=== PATIENT | male | born 1980 | race Caucasian/White ===

== ENCOUNTER 2018-01-13 20:24 | Emergency (ER) | payer BC ==
[2018-01-13] MEDS ORDERED: IBUPROFEN 400 MG TAB ONE (22:03)
[2018-01-13] MEDS ORDERED: IBUPROFEN 200 MG TAB PO ONE (22:03)
[2018-01-13] MEDS ORDERED: AMOX/K CLAV 875 MG TAB ONE (22:03)
--- NOTE | 2018-01-13 22:04 | ER ---
Nurse's Notes [facility] Name: Wilmar Norman Age: 37 yrs Sex: Male : 1980 Arrival Date: 01/13/2018 Time: 20:31 Bed 23 Private MD: Diagnosis: Bitten by dog;Puncture wound without foreign body of left hand Presentation: 01/13 20:31 Presenting complaint: Patient states: My dog bit me about 30 minutes ago. Dog is tl2 vaccinated. Accidental bite. small puncture wound noted to left thumb area. Transition of care: patient was not received from another setting of care. Onset of symptoms was January 13, 2018 at 20:00. Risk Assessment: Do you want to hurt yourself or someone else? Patient reports no desire to harm self or others. Initial Sepsis Screen: Does the patient meet any 2 criteria? No. Patient's initial sepsis screen is negative. Does the patient have a suspected source of infection? No. Patient's initial sepsis screen is negative. Care prior to arrival: None. 20:31 Method Of Arrival: Ambulatory tl2 20:31 Acuity: J LUIS 4 tl2 Triage Assessment: 20:34 Bite description: bite sustained to dorsal aspect of proximal phalanx of left thumb is tl2 from animal, was sustained 30-60 minutes ago. by a dog, animal information: Appearance: appeared well, is from animal, vaccination(s) is current, was sustained 30-60 minutes ago. Animal status: known and can be quarantined. General: Appears in no apparent distress. comfortable, Behavior is calm, cooperative, appropriate for age. Pain: Complains of pain in dorsal aspect of proximal phalanx of left thumb. Injury Description: Puncture sustained to dorsal aspect of proximal phalanx of left thumb is superficial, was sustained 30-60 minutes ago. Historical: - Allergies: 20:34 No Known Allergies; tl2 - Home Meds: 20:34 guafenesin [Active]; tl2 - PMHx: 20:34 ADD/ADHD; tl2 - Immunization history:: Last tetanus immunization: < 5 years ago. - Social history:: Smoking status: Patient/guardian denies using tobacco. - Ebola Screening: : No symptoms or risks identified at this time. - Family history:: not pertinent. Screenin:01 Abuse screen: Denies threats or abuse. Denies injuries from another. Nutritional mg2 screening: No deficits noted. Tuberculosis screening: No symptoms or risk factors identified. Fall Risk None identified. Assessment: 20:42 Reassessment: Spoke with Jose OLIVARES to report dog bite. tl2 21:02 General: Appears in no apparent distress. comfortable, Behavior is calm, cooperative. mg2 Pain: Complains of pain in left hand and dorsal aspect of proximal phalanx of left thumb Pain does not radiate. Pain currently is 5 out of 10 on a pain scale. Quality of pain is described as aching, Pain began gradually, Is intermittent, Alleviated by rest, repositioning. Neuro: Level of Consciousness is awake, alert, obeys commands, Oriented to person, place, time, situation. Cardiovascular: Capillary refill < 3 seconds Patient's skin is warm and dry. Respiratory: Airway is patent Respiratory effort is even, unlabored, Respiratory pattern is regular, symmetrical. GI: No deficits noted. No signs and/or symptoms were reported involving the gastrointestinal system. : No signs and/or symptoms were reported regarding the genitourinary system. EENT: No signs and/or symptoms were reported regarding the EENT system. Derm: Skin punctured wound Skin is pink, warm \T\ dry. normal. Musculoskeletal: Circulation, motion, and sensation intact. 22:51 Reassessment: Patient appears in no apparent distress at this time. Patient and/or mg2 family updated on plan of care and expected duration. Pain level reassessed. Patient is alert, oriented x 3, equal unlabored respirations, skin warm/dry/pink. Vital Signs: 20:34 BP 127 / 77; Pulse 72; Resp 18; Temp 98.4; Pulse Ox 98% on R/A; Weight 99.79 kg; Height tl2 5 ft. 10 in. (177.80 cm); Pain 3/10; 22:00 BP 103 / 66 LA Supine (auto/reg); Pulse 64 MON; Resp 19 S; Pulse Ox 99% on R/A; jp3 22:50 BP 123 / 78; Pulse 85; Resp 18; Pulse Ox 100% ; Pain 2/10; mg2 20:34 Body Mass Index 31.57 (99.79 kg, 177.80 cm) tl2 ED Course: 20:31 Patient arrived in ED. tl2 20:34 Triage completed. tl2 20:34 Arm band placed on right wrist. tl2 20:47 Derek Prieto, RN is Primary Nurse. mg2 21:02 No provider procedures requiring assistance completed. mg2 21:04 Patient has correct armband on for positive identification. mg2 21:18 Timothy Zamorano MD is Attending Physician. [facility] 21:54 Hand Left 3 View XRAY In Process Unspecified. EDMS 22:50 Patient did not have IV access during this emergency room visit. Dressings: mg2 non-adherent dressing x 1 lateral aspect of left hand and dorsal aspect of proximal phalanx of left thumb neosporin applied. Administered Medications: 22:13 Drug: Augmentin 875 mg Route: PO; mg2 22:40 Follow up: Response: No adverse reaction; Medication administered at discharge. mg2 22:13 Drug: Motrin 600 mg Route: PO; mg2 22:40 Follow up: Response: No adverse reaction; Medication administered at discharge. mg2 22:40 Drug: Ancef 1 grams Route: IM; Site: left gluteus; mg2 22:40 Follow up: Response: No adverse reaction; Medication administered at discharge. mg2 Outcome: 22:03 Discharge ordered by . [facility] 22:51 Discharged to home ambulatory, with family. mg2 22:51 Condition: good 22:51 Discharge instructions given to patient, family, Instructed on discharge instructions, follow up and referral plans. medication usage, Demonstrated understanding of instructions, follow-up care, medications, Prescriptions given X 3. 22:51 Patient left the ED. mg2 Signatures: Dispatcher [employer] [facility] Timothy Zamorano MD MD cha Knox, Taylor, RN RN tl2 Derek Prieto RN RN [facility] Kurt Beck jp3
--- NOTE | 2018-01-13 22:04 | EDPHYS ---
Physician Documentation [facility] Name: Wilmar Norman Age: 37 yrs Sex: Male : 1980 Arrival Date: 01/13/2018 Time: 20:31 Bed 23 Private MD: ED Physician Timothy Zamorano HPI: 01/13 21:23 This 37 yrs old Male presents to ER via Ambulatory with complaints of Dog jamarcus Bite. 21:23 by a dog, as a result of teasing the animal. Onset: The symptoms/episode began/occurred jamarcus just prior to arrival. Animal information: The animal was reported to appear healthy. Animal's vaccinations are up to date. The animal is known and can be quarantined, Animal control has been notified. Secondary to the bite the patient reports pain, multiple puncture wounds. Associated signs and symptoms: Pertinent positives: tenderness. Severity of symptoms: At their worst the symptoms were mild, moderate, in the emergency department the symptoms have improved, mildly. The patient has not experienced similar symptoms in the past. Historical: - Allergies: 20:34 No Known Allergies; tl2 - Home Meds: 20:34 guafenesin [Active]; tl2 - PMHx: 20:34 ADD/ADHD; tl2 - Immunization history:: Last tetanus immunization: < 5 years ago. - Social history:: Smoking status: Patient/guardian denies using tobacco. - Ebola Screening: : No symptoms or risks identified at this time. - Family history:: not pertinent. ROS: 21:23 Constitutional: Negative for fever, chills, and weight loss, Eyes: Negative for injury, jamarcus pain, redness, and discharge, ENT: Negative for injury, pain, and discharge, Neck: Negative for injury, pain, and swelling, Cardiovascular: Negative for chest pain, palpitations, and edema, Respiratory: Negative for shortness of breath, cough, wheezing, and pleuritic chest pain, Abdomen/GI: Negative for abdominal pain, nausea, vomiting, diarrhea, and constipation, Back: Negative for injury and pain, : Negative for injury, bleeding, discharge, and swelling, Skin: Negative for injury, rash, and discoloration, Neuro: Negative for headache, weakness, numbness, tingling, and seizure, Psych: Negative for depression, anxiety, suicide ideation, homicidal ideation, and hallucinations, Allergy/Immunology: Negative for hives, rash, and allergies, Endocrine: Negative for neck swelling, polydipsia, polyuria, polyphagia, and marked weight changes, Hematologic/Lymphatic: Negative for swollen nodes, abnormal bleeding, and unusual bruising. 21:23 MS/extremity: Positive for decreased range of motion, pain, puncture, tenderness, of the lateral aspect of left hand. Exam: 21:23 Constitutional: This is a well developed, well nourished patient who is awake, alert, jamarcus and in no acute distress. Head/Face: Normocephalic, atraumatic. Eyes: Pupils equal round and reactive to light, extra-ocular motions intact. Lids and lashes normal. Conjunctiva and sclera are non-icteric and not injected. Cornea within normal limits. Periorbital areas with no swelling, redness, or edema. ENT: Nares patent. No nasal discharge, no septal abnormalities noted. Tympanic membranes are normal and external auditory canals are clear. Oropharynx with no redness, swelling, or masses, exudates, or evidence of obstruction, uvula midline. Mucous membranes moist. Neck: Trachea midline, no thyromegaly or masses palpated, and no cervical lymphadenopathy. Supple, full range of motion without nuchal rigidity, or vertebral point tenderness. No Meningismus. Chest/axilla: Normal chest wall appearance and motion. Nontender with no deformity. No lesions are appreciated. Cardiovascular: Regular rate and rhythm with a normal S1 and S2. No gallops, murmurs, or rubs. Normal PMI, no JVD. No pulse deficits. Respiratory: Lungs have equal breath sounds bilaterally, clear to auscultation and percussion. No rales, rhonchi or wheezes noted. No increased work of breathing, no retractions or nasal flaring. Abdomen/GI: Soft, non-tender, with normal bowel sounds. No distension or tympany. No guarding or rebound. No evidence of tenderness throughout. Back: No spinal tenderness. No costovertebral tenderness. Full range of motion. Male : Normal genitalia with no discharge or lesions. MS/ Extremity: Pulses equal, no cyanosis. Neurovascular intact. Full, normal range of motion. Neuro: Awake and alert, GCS 15, oriented to person, place, time, and situation. Cranial nerves II-XII grossly intact. Motor strength 5/5 in all extremities. Sensory grossly intact. Cerebellar exam normal. Normal gait. Psych: Awake, alert, with orientation to person, place and time. Behavior, mood, and affect are within normal limits. 21:23 Skin: injury, puncture(s), that are deep, of the lateral aspect of left hand. Vital Signs: 20:34 BP 127 / 77; Pulse 72; Resp 18; Temp 98.4; Pulse Ox 98% on R/A; Weight 99.79 kg; Height tl2 5 ft. 10 in. (177.80 cm); Pain 3/10; 22:00 BP 103 / 66 LA Supine (auto/reg); Pulse 64 MON; Resp 19 S; Pulse Ox 99% on R/A; jp3 22:50 BP 123 / 78; Pulse 85; Resp 18; Pulse Ox 100% ; Pain 2/10; mg2 20:34 Body Mass Index 31.57 (99.79 kg, 177.80 cm) tl2 MDM: 21:18 Patient medically screened. [facility] 21:25 Data reviewed: vital signs, nurses notes, radiologic studies, plain films. [facility] 01/13 21:23 Order name: Hand Left 3 View XRAY [facility] 01/13 21:23 Order name: Wound Care: neosporin; Complete Time: 22:13 [facility] Administered Medications: 22:13 Drug: Augmentin 875 mg Route: PO; mg2 22:40 Follow up: Response: No adverse reaction; Medication administered at discharge. mg2 22:13 Drug: Motrin 600 mg Route: PO; mg2 22:40 Follow up: Response: No adverse reaction; Medication administered at discharge. mg2 22:40 Drug: Ancef 1 grams Route: IM; Site: left gluteus; mg2 22:40 Follow up: Response: No adverse reaction; Medication administered at discharge. mg2 Disposition: 01/13/18 22:03 Discharged to Home. Impression: Bitten by dog, Puncture wound without foreign body of left hand. - Condition is Stable. - Discharge Instructions: Animal Bite, [id number], Puncture Wound, Puncture Wound, [id number], Animal Bite. - Prescriptions for Augmentin 875- 125 mg Oral Tablet - take 1 tablet by ORAL route every 12 hours for 10 days; 20 tablet. Bactroban 2 % Topical Ointment - Apply to affected area 1 application by TOPICAL route every 12 hours; 30 gram. Tylenol- Codeine #3 300-30 mg Oral Tablet - take 2 tablet by ORAL route every 6 hours As needed; 30 tablet. - Medication Reconciliation Form, Thank You Letter, Antibiotic Education, Prescription Opioid Use, Work release form form. - Follow up: Private Physician; When: 2 - 3 days; Reason: Recheck today's complaints, Continuance of care, Re-evaluation by your physician. - Problem is new. - Symptoms have improved. Signatures: Dispatcher [employer] [facility]NM Timothy Zamorano MD MD cha Knox, Taylor, RN RN tl2 Derek Prieto, RN RN mg2 Corrections: (The following items were deleted from the chart) 22:51 22:03 01/13/2018 22:03 Discharged to Home. Impression: Bitten by dog; Puncture wound mg2 without foreign body of left hand. Condition is Stable. Discharge Instructions: Animal Bite, [id number], Animal Bite, Puncture Wound, Puncture Wound, [id number]. Prescriptions for Augmentin 875-125 mg Oral Tablet - take 1 tablet by ORAL route every 12 hours for 10 days; 20 tablet, Bactroban 2 % Topical Ointment - Apply to affected area 1 application by TOPICAL route every 12 hours; 30 gram, Tylenol-Codeine #3 300-30 mg Oral Tablet - take 2 tablet by ORAL route every 6 hours As needed; 30 tablet. and Forms are Medication Reconciliation Form, Thank You Letter, Antibiotic Education, Prescription Opioid Use. Follow up: Private Physician; When: 2 - 3 days; Reason: Recheck today's complaints, Continuance of care, Re-evaluation by your physician. Problem is new. Symptoms have improved. jamarcus
[2018-01-13] MEDS ORDERED: CEFAZOLIN SODIUM 1 GM/VIAL ONE (22:33)
[2018-01-13] MEDS ORDERED: WATER FOR INJ,STERILE 10 ML ONE (22:36)
--- NOTE | 2018-01-14 09:03 | RAD REPORT ---
EXAM DESCRIPTION: RAD -Hand Left 3 View - 01/13/2018 9:58 pm CLINICAL HISTORY: Left hand pain status post injury FINDINGS: No fracture or dislocation is seen. Air is present within the soft tissues of the first proximal phalanx secondary to a dog bite
== END 2018-01-13 22:51 | disposition home or self-care (01) ==
LOC: ER 20:24
DX: S61.032A Puncture wound without foreign body of left thumb without damage to nail, initial encounter (principal); W54.0XXA Bitten by dog, initial encounter; Y93.K9 Activity, other involving animal care; Y92.009 Unspecified place in unspecified non-institutional (private) residence as the place of occurrence of the external cause
CPT/HCPCS: 96372; 99283; J0690

== ENCOUNTER 2018-05-11 17:08 | Observation (INO) | payer BC ==
[2018-05-11 18:11] LABS: Absolute Lymphocytes (CBC) 1.4 K/uL (0.7-4.9); Absolute Monocytes 0.8 K/uL (0.1-1.3); Absolute Neutrophil 1.9 K/uL (1.8-8.0); Basophils % 0.4 % (0-1.3); Eosinophils % 1.5 % (0-4.4); Hematocrit 41.2 % (39.6-49.0); Lymphocytes % 34.1 % (15.3-44.8); Monocytes % 18.5 % (3.3-12.3); RBC Red Blood Cell Count 4.86 M/uL (4.33-5.43)
[2018-05-11 18:12] LABS: Protime INR 1.04
--- NOTE | 2018-05-11 18:16 | RAD REPORT ---
EXAM DESCRIPTION: Missy Single View05/11/2018 6:09 pm CLINICAL HISTORY: Chest pain COMPARISON: 2010 FINDINGS: The lungs appear clear of acute infiltrate. The heart is normal size IMPRESSION: No acute abnormalities displayed
[2018-05-11 18:30] LABS: ALT/SGPT 29 U/L (12-78); AST/SGOT 21 U/L (15-37); Alkaline Phosphatase 68 U/L (45-117); BUN Blood Urea Nitrogen 18 mg/dL (7-18); Bicarbonate 26 mmol/L (21-32); Bilirubin Direct < 0.1 mg/dL (0-0.2); Bilirubin Total 0.4 mg/dL (0.2-1.0); Glucose Level 73 mg/dL (74-106); Magnesium 2.1 mg/dL (1.8-2.4); NT PRO-BNP 10 pg/mL (<125); Potassium 3.5 mmol/L (3.5-5.1); Protein, Total 7.7 g/dL (6.4-8.2); Sodium Level 138 mmol/L (136-145); Troponin (Emerg Dept Use Only) < 0.02 ng/mL (0.0-0.045)
--- NOTE | 2018-05-11 19:48 | ER ---
Nurse's Notes [facility] Name: Wilmar Norman Age: 38 yrs Sex: Male : 1980 Arrival Date: 05/11/2018 Time: 17:17 Bed 13 Private MD: Diagnosis: Chest pain, unspecified Presentation: 05/11 17:10 Presenting complaint: EMS states: Pt 38 yr. old, A \T\ O x 4, c/o of chest pain that hb radiated to the left arm. At the pt. employer BP 150/100, P 88, 98% RA. Co-worker administered Aspirin 325 mg x 1 before EMS arrived. Pt. has NKA. Transition of care: patient was not received from another setting of care. Onset of symptoms was May 11, 2018 at 16:55. Risk Assessment: Do you want to hurt yourself or someone else? Patient reports no desire to harm self or others. Initial Sepsis Screen: Does the patient meet any 2 criteria? No. Patient's initial sepsis screen is negative. Does the patient have a suspected source of infection? No. Patient's initial sepsis screen is negative. Care prior to arrival: Medication(s) given: ASA, 325 mg, x 1. 17:10 Method Of Arrival: EMS: [facility] hb 17:10 Acuity: J LUIS 3 hb Historical: - Allergies: 17:10 No Known Allergies; hb - Home Meds: 17:10 guafenesin 1 mg nightly [Active]; Naproxen Oral [Active]; hb - PMHx: 17:10 ADD/ADHD; hb - PSHx: 17:10 Hernia repair; Tonsillectomy; Adenoids; hb - Immunization history:: Flu vaccine is up to date. - Social history:: Smoking status: Patient/guardian denies using tobacco. - Ebola Screening: : Patient negative for fever greater than or equal to 101.5 degrees Fahrenheit, and additional compatible Ebola Virus Disease symptoms. Screenin:10 Abuse screen: Denies threats or abuse. Nutritional screening: No deficits noted. rb1 Tuberculosis screening: No symptoms or risk factors identified. Fall Risk None identified. Assessment: 17:10 General: Appears in no apparent distress. comfortable, Behavior is calm, cooperative, rb1 Denies fever. Pain: Denies pain. Pain radiates to left arm Pt. denies pain now, but when it occurred on the job site, it was 10/10 and radiated down his left arm. C/o left arm tingling. Pain began 30 min ago. Neuro: Level of Consciousness is awake, alert, obeys commands, Oriented to person, place, time, situation, Reports tingling down left arm. Cardiovascular: Capillary refill < 3 seconds is brisk in bilateral fingers Rhythm is regular. Respiratory: Airway is patent Respiratory effort is even, unlabored, Respiratory pattern is regular, symmetrical. GI: No signs and/or symptoms were reported involving the gastrointestinal system. : No signs and/or symptoms were reported regarding the genitourinary system. Derm: Skin is pink, warm \T\ dry. 18:10 Reassessment: Patient appears in no apparent distress at this time. No changes from rb1 previously documented assessment. Friend at bedside. 19:00 General: Appears in no apparent distress. comfortable, Behavior is calm, cooperative. jb4 Pain: Denies pain. Neuro: Level of Consciousness is awake, alert, obeys commands, Oriented to person, place, time, situation. Cardiovascular: Patient's skin is warm and dry. Rhythm is sinus rhythm. Respiratory: Airway is patent Respiratory effort is even, unlabored, Respiratory pattern is regular, symmetrical. 19:00 Reassessment: Patient and/or family updated on plan of care and expected duration. Pain jb4 level reassessed. 20:00 Reassessment: Patient appears in no apparent distress at this time. No changes from jb4 previously documented assessment. Patient and/or family updated on plan of care and expected duration. Pain level reassessed. Patient is alert, oriented x 3, equal unlabored respirations, skin warm/dry/pink. Cardiovascular: Patient's skin is warm and dry. Rhythm is sinus rhythm. Respiratory: Airway is patent Respiratory effort is even, unlabored, Respiratory pattern is regular, symmetrical. 21:45 Reassessment: Patient appears in no apparent distress at this time. No changes from jb4 previously documented assessment. Patient and/or family updated on plan of care and expected duration. Pain level reassessed. Patient is alert, oriented x 3, equal unlabored respirations, skin warm/dry/pink. Pt has family at the bedside. Cardiovascular: Patient's skin is warm and dry. Rhythm is sinus rhythm. Respiratory: Airway is patent Respiratory effort is even, unlabored, Respiratory pattern is regular, symmetrical. 22:31 Reassessment: Patient appears in no apparent distress at this time. No changes from jb4 previously documented assessment. Patient and/or family updated on plan of care and expected duration. Pain level reassessed. Patient is alert, oriented x 3, equal unlabored respirations, skin warm/dry/pink. 23:15 Reassessment: Patient appears in no apparent distress at this time. No changes from jb4 previously documented assessment. Patient and/or family updated on plan of care and expected duration. Pain level reassessed. Patient is alert, oriented x 3, equal unlabored respirations, skin warm/dry/pink. Vital Signs: 17:10 BP 112 / 79; Pulse 77; Resp 18; Temp 97.9(O); Pulse Ox 100% on R/A; Weight 113.4 kg hb (R); Height 5 ft. 10 in. (177.80 cm) (R); Pain 0/10; 18:00 BP 111 / 85; Pulse 77; Resp 12; Pulse Ox 100% on R/A; Pain 0/10; rb1 19:00 BP 113 / 79; Pulse 82; Resp 16; Pulse Ox 100% on R/A; jb4 20:00 BP 116 / 74; Pulse 72; Resp 16; Pulse Ox 98% on R/A; jb4 21:30 BP 123 / 65; Pulse 76; Resp 16; Pulse Ox 96% on R/A; jb4 22:31 BP 115 / 70; Pulse 76; Resp 16; Temp 98.1(TE); Pulse Ox 96% on R/A; jb4 23:15 BP 125 / 76; Pulse 84; Resp 16; Pulse Ox 100% on R/A; jb4 17:10 Body Mass Index 35.87 (113.40 kg, 177.80 cm) hb ED Course: 17:10 Patient maintains SpO2 saturation greater than 95% on room air. rb1 17:10 Patient has correct armband on for positive identification. Placed in gown. Bed in low rb1 position. Call light in reach. Side rails up X 1. monitoring analyst on. Pulse ox on. NIBP on. 17:10 Arm band placed on right wrist. rb1 17:17 Patient arrived in ED. hb 17:20 Triage completed. hb 17:21 EKG done, by conveyor technician. reviewed by Misael Malik MD. sm3 17:25 Inserted saline lock: 22 gauge in right antecubital area, using aseptic technique. rb1 Blood collected. 17:30 Sherif Reyna PA is PHCP. [facility] 17:30 Misael Malik MD is Attending Physician. [facility] 17:32 Rachael Powell, RN is Primary Nurse. hb 18:09 XRAY Chest (1 view) In Process Unspecified. EDMS 19:00 Report given to JOSEPHINE Suarez. rb1 19:47 Glenn Jane MD is Hospitalizing Provider. [facility] 20:24 Primary Nurse role handed off by Rachael Powell RN ed1 20:35 Enio Bragg, JOSEPHINE is Primary Nurse. jb4 23:15 No provider procedures requiring assistance completed. Patient admitted, IV remains in jb4 place. Administered Medications: No medications were administered Outcome: 19:48 Decision to Hospitalize by Provider. [facility] 23:15 Admitted to Med/surg accompanied by tech, via wheelchair, room 207, with chart, Report jb4 called to JOSEPHINE Colvin 23:15 Condition: stable 23:15 Discharge instructions given to patient, family, Instructed on the need for admit, Demonstrated understanding of instructions. 23:27 Patient left the ED. jb4 Signatures: Dispatcher [employer] EDLA Sherif Reyna PA PA [facility] Lauren Han, [employer]ES [employer] ed1 Danay Bonilla, RN RN rb1 Rachael Powell RN RN Enio Bragg, JOSEPHINE RN jb4 Estee Carrillo 3 Corrections: (The following items were deleted from the chart) 17:33 17:25 Inserted saline lock: 22 gauge in right antecubital area, using aseptic hb technique. Blood collected. hb 21:49 21:45 Reassessment: Patient appears in no apparent distress at this time. No changes jb4 from previously documented assessment. Patient and/or family updated on plan of care and expected duration. Pain level reassessed. Patient is alert, oriented x 3, equal unlabored respirations, skin warm/dry/pink. jb4
--- NOTE | 2018-05-11 19:48 | EDPHYS ---
Physician Documentation [facility] Name: Wilmar Norman Age: 38 yrs Sex: Male : 1980 Arrival Date: 05/11/2018 Time: 17:17 Bed 13 Private MD: ED Physician Misael Malik HPI: 05/11 17:33 This 38 yrs old Male presents to ER via EMS with complaints of Chest Pain. [facility] 17:33 The patient or guardian reports chest pain that is located primarily in the substernal [facility] area. The pain radiates to Associated signs and symptoms: Pertinent positives: cough. The chest pain is described as a pressure. Duration: The patient or guardian reports a single episode, that is now resolved. This is a 38 year old male with a history of ADHD that presents to the ED with substernal chest pain beginning just prior to arrival while at work. Patient was administered aspirin which resolved his pain. Patient denies tobacco use, denies recreational drug use. Patient denies fever. . Historical: - Allergies: 17:10 No Known Allergies; hb - Home Meds: 17:10 guafenesin 1 mg nightly [Active]; Naproxen Oral [Active]; hb - PMHx: 17:10 ADD/ADHD; hb - PSHx: 17:10 Hernia repair; Tonsillectomy; Adenoids; hb - Immunization history:: Flu vaccine is up to date. - Social history:: Smoking status: Patient/guardian denies using tobacco. - Ebola Screening: : Patient negative for fever greater than or equal to 101.5 degrees Fahrenheit, and additional compatible Ebola Virus Disease symptoms. ROS: 17:33 Constitutional: Negative for fever, chills, and weight loss, Eyes: Negative for injury, jmm pain, redness, and discharge. 17:33 Abdomen/GI: Negative for abdominal pain, nausea, vomiting, diarrhea, and constipation, Back: Negative for injury and pain, MS/Extremity: Negative for injury and deformity, Skin: Negative for injury, rash, and discoloration, Neuro: Negative for headache, weakness, numbness, tingling, and seizure, Psych: Negative for depression, anxiety, suicide ideation, homicidal ideation, and hallucinations. 17:33 Cardiovascular: Positive for chest pain. 17:33 Respiratory: Positive for cough. 17:33 All other systems are negative. Exam: 17:33 Head/Face: atraumatic. m 17:33 ENT: Moist Mucus Membranes Neck: Trachea midline, Supple Chest/axilla: Normal chest wall appearance and motion. 17:33 Abdomen/GI: Non distended, soft Back: Normal ROM Skin: General appearance color normal MS/ Extremity: Moves all extremities, no obvious deformities appreciated, no edema noted to the lower extremities Neuro: Awake and alert, normal gait Psych: Behavior is normal, Mood is normal, Patient is cooperative and pleasant 17:33 Constitutional: The patient appears in no acute distress, alert, awake. 17:33 Cardiovascular: Rate: normal, Rhythm: regular. 17:33 Respiratory: the patient does not display signs of respiratory distress, Respirations: normal, Breath sounds: are clear throughout. Vital Signs: 17:10 BP 112 / 79; Pulse 77; Resp 18; Temp 97.9(O); Pulse Ox 100% on R/A; Weight 113.4 kg hb (R); Height 5 ft. 10 in. (177.80 cm) (R); Pain 0/10; 18:00 BP 111 / 85; Pulse 77; Resp 12; Pulse Ox 100% on R/A; Pain 0/10; rb1 19:00 BP 113 / 79; Pulse 82; Resp 16; Pulse Ox 100% on R/A; jb4 20:00 BP 116 / 74; Pulse 72; Resp 16; Pulse Ox 98% on R/A; jb4 21:30 BP 123 / 65; Pulse 76; Resp 16; Pulse Ox 96% on R/A; jb4 22:31 BP 115 / 70; Pulse 76; Resp 16; Temp 98.1(TE); Pulse Ox 96% on R/A; jb4 23:15 BP 125 / 76; Pulse 84; Resp 16; Pulse Ox 100% on R/A; jb4 17:10 Body Mass Index 35.87 (113.40 kg, 177.80 cm) hb MDM: 17:33 Patient medically screened. [facility] 19:46 Data reviewed: vital signs, nurses notes, lab test result(s), EKG, radiologic studies, [facility] plain films. Data interpreted: Pulse oximetry: on room air. ED course: I discussed the patient with Dr. Jane whom accepted admission. . 05/11 17:40 Order name: Basic Metabolic Panel; Complete Time: 18:39 [facility] 05/11 17:40 Order name: CBC with Diff; Complete Time: 20:35 [facility] 05/11 17:40 Order name: LFT's; Complete Time: 18:39 [facility] 05/11 17:40 Order name: Magnesium; Complete Time: 18:39 [facility] 05/11 17:40 Order name: NT PRO-BNP; Complete Time: 18:39 [facility] 05/11 17:40 Order name: PT-INR; Complete Time: 18:16 [facility] 05/11 17:40 Order name: Troponin (emerg Dept Use Only); Complete Time: 18:39 [facility] 05/11 17:40 Order name: XRAY Chest (1 view); Complete Time: 18:17 [facility] 05/11 17:40 Order name: EKG; Complete Time: 17:41 [facility] 05/11 17:40 Order name: Cardiac monitoring; Complete Time: 18:29 [facility] 05/11 17:40 Order name: EKG - Nurse/Tech; Complete Time: 18:29 [facility] 05/11 17:40 Order name: IV Saline Lock; Complete Time: 18:29 [facility] 05/11 17:40 Order name: Labs collected and sent; Complete Time: 18:29 [facility] 05/11 20:32 Order name: CBC Smear Scan; Complete Time: 20:35 [facility] 05/11 17:40 Order name: O2 Per Protocol; Complete Time: 18:29 [facility] 05/11 17:40 Order name: O2 Sat Monitoring; Complete Time: 18:30 jmm Administered Medications: No medications were administered Disposition: 05/11/18 19:48 Hospitalization ordered by Glenn Jane for Observation. Preliminary diagnosis is Chest pain, unspecified. - Bed requested for Telemetry/MedSurg (observation). - Status is Observation. jb4 - Condition is Stable. - Problem is new. - Symptoms have improved. UTI on Admission? No Addendum: 05/22/2018 07:37 Co-signature as Attending Physician, Misael Malik MD I agree with the assessment and k dr plan of care. Signatures: Dispatcher [employer] [facility] Misael Malik MD MD kdr Mickail, Joel, PA PA Kayleigh Gallardo RN RN Rachael Powell RN JOSEPHINE Enio Bragg RN RN jb4 Corrections: (The following items were deleted from the chart) 05/11 22:15 19:48 Hospitalization Ordered by Glenn Jane MD for Observation. Preliminary cg diagnosis is Chest pain, unspecified. Bed requested for Telemetry/MedSurg (observation). Status is Observation. Condition is Stable. Problem is new. Symptoms have improved. UTI on Admission? No. [facility] 23:27 22:15 05/11/2018 19:48 Hospitalization Ordered by Glenn Jane MD for Observation. jb4 Preliminary diagnosis is Chest pain, unspecified. Bed requested for Telemetry/MedSurg (observation). Status is Observation. Condition is Stable. Problem is new. Symptoms have improved. UTI on Admission? No. cg
[2018-05-11 20:31] LABS: Blood Morphology Comment NOT SEEN (NOT SEEN); Platelet Estimate ADEQ; Urine White Blood Cell Casts OK
[2018-05-11] MEDS ORDERED: ACETAMINOPHEN 500 MG TAB PO PRN (21:45)
[2018-05-11] MEDS ORDERED: ALPRAZOLAM 0.25 MG TABLET PO PRN (21:45)
[2018-05-11] MEDS ORDERED: MORPHINE 4 MG/ML SYR IV PRN (21:45)
[2018-05-12 00:20] VITALS: BMI 34.9
[2018-05-12] MEDS: METOPROLOL TAR 50 MG TAB PO SCH ×2 (05:00→17:27)
[2018-05-12 06:01] LABS: Absolute Lymphocytes (CBC) 1.5 K/uL (0.7-4.9); Absolute Monocytes 0.8 K/uL (0.1-1.3); Absolute Neutrophil 1.7 K/uL (1.8-8.0); Basophils % 0.5 % (0-1.3); Eosinophils % 2.2 % (0-4.4); Hematocrit 41.7 % (39.6-49.0); Lymphocytes % 35.9 % (15.3-44.8); MPV 7.9 fL (7.6-11.3); RBC Red Blood Cell Count 4.85 M/uL (4.33-5.43)
[2018-05-12 06:45] LABS: BUN Blood Urea Nitrogen 18 mg/dL (7-18); Bicarbonate 25 mmol/L (21-32); Glucose Level 87 mg/dL (74-106); HDL Cholesterol 51 mg/dL (40-60); LDL Cholesterol, Calculated 105 (<130); Potassium 3.6 mmol/L (3.5-5.1); Sodium Level 140 mmol/L (136-145); Troponin I < 0.02 ng/mL (0.0-0.045)
--- NOTE | 2018-05-12 07:01 | EKG ---
Test Date: 2018-05-11 Test Time: 17:13:40 Dough Mixer Helper: ALBERT MEASUREMENT RESULTS: Intervals: Rate: 77 VT: 150 QRSD: 94 QT: 364 QTc: 411 [place]: P: 44 VT: 150 QRS: 96 T: 4 INTERPRETIVE STATEMENTS: Normal sinus rhythm Rightward axis Borderline ECG Compared to ECG 10/06/2010 14:55:06 Right-axis deviation now present Electronically Signed On 05-12-18 06:52:15 PHYSICIAN OBSTETRICIAN by George Parks
[2018-05-12] MEDS ORDERED: ENOXAPARIN 40 MG/0.4 ML SQ SCH (09:00)
[2018-05-12] MEDS ORDERED: ASPIRIN EC 81 MG TAB PO SCH (09:00)
--- NOTE | 2018-05-12 09:08 | P.HP ---
Certification for Inpatient Patient admitted to: Observation With expected LOS: <2 Midnights Patient will require the following post-hospital care: None Practitioner: I am a practitioner with admitting privileges, knowledge of patient current condition, hospital course, and medical plan of care. Services: Services provided to patient in accordance with Admission requirements found in Title 42 Section 412.3 of the Code of Federal Regulations Patient History Date of Service: 05/11/18 Reason for admission: Chest pain rule out acute coronary syndrome History of Present Illness: Patient 38 old gentleman came into the hospital with chest discomfort. Patient was at work he said it was really when the. He said he was a lot of dust in the area. It was blood all around the many was coughing quite a bit. Has history of bronchitis. He believes is bronchitis was flared. He had a lot of congestion as well. He started having chest pain. He was in the sternal region and radiate to his left arm. He denied any shortness of breath but was a little nauseated. No diaphoresis. Chest pain was not improving so he came to the ER. He is admitted to the hospital for further workup. Allergies No Known Allergies Allergy (Unverified 05/11/18 23:46) Home Medications: Guanfacine HCl [Guanfacine HCl ER] 1 mg PO BEDTIME 05/11/18 - Past Medical/Surgical History Has patient received pneumonia vaccine in the past: No Diabetic: No -: ADD -: Bronchitis -: left inguinal sx -: tonsillectomy/adenoids - Family History Father Medical History: Hypertension, Diabetes Mother Medical History: Heart disease, Hypertension Notes: hypoglycemia - Social History Smoking Status: Never smoker Alcohol use: No CD- Drugs: No Caffeine use: Yes Place of Residence: Home Review of Systems 10-point ROS is otherwise unremarkable Physical Examination - Vital Signs Temperature: 98 F Blood Pressure: 119/22 Pulse: 74 Respirations: 16 Pulse Ox (%): 99 - Physical Exam General: Alert, In no apparent distress, Oriented x3 HEENT: Atraumatic, PERRLA, Mucous membr. moist/pink, EOMI, Sclerae nonicteric Neck: Supple, 2+ carotid pulse no bruit, No LAD, Without JVD or thyroid abnormality Respiratory: Clear to auscultation bilaterally, Normal air movement Cardiovascular: Regular rate/rhythm, Normal S1 S2, No murmurs Gastrointestinal: Normal bowel sounds, Soft and benign, Non-distended, No tenderness Musculoskeletal: No tenderness Integumentary: No rashes Neurological: Normal gait, Normal speech, Normal strength at 5/5 x4 extr, Normal tone, Sensation intact, Cranial nerves 3-12 intact, Normal affect Lymphatics: No axilla or inguinal lymphadenopathy - Studies Laboratory Data (last 24 hrs) 05/11/18 17:25: PT 12.3, INR 1.04 05/11/18 17:25: WBC 4.1 L, Hgb 14.3, Hct 41.2, Plt Count 269 05/11/18 17:25: Sodium 138, Potassium 3.5, BUN 18, Creatinine 1.00, Glucose 73 L , Magnesium 2.1, Total Bilirubin 0.4, AST 21, ALT 29, Alkaline Phosphatase 68 Assessment & Plan - Problems (Diagnosis) (1) Chest pain, rule out acute myocardial infarction Current Visit: Yes Status: Acute (2) Persistent cough Current Visit: Yes Status: Acute (3) Acute bronchitis Current Visit: Yes Status: Acute - Plan 1. Serial troponins and EKG 2. Cardiology consultation 3. Echocardiogram and treadmill stress test 4. Anti-platelet therapy, anti coagulation, beta-arben, statin, and O2 as needed 5. IV morphine for pain 6. Nitro p.r.n. Discharge Plan: Home Plan to discharge in: 48 Hours - Advance Directives Does patient have a Living Will: No Does patient have a Durable POA for Healthcare: No - Code Status/Comfort Care Code Status Assessed: Yes Code Status: Full Code Critical Care: No Time Spent Managing PTS Care (In Minutes): 50
[2018-05-12 13:15] VITALS: TEMP 98.6
--- NOTE | 2018-05-12 16:24 | P.PN ---
Subjective Date of Service: 05/12/18 Chief Complaint: Chest pain rule out acute coronary syndrome Physical Examination - Vital Signs Temperature: 98.6 F Blood Pressure: 125/70 Pulse: 87 Respirations: 16 Pulse Ox (%): 99 - Studies Laboratory Data (last 24 hrs) 05/11/18 17:25: PT 12.3, INR 1.04 05/11/18 17:25: WBC 4.1 L, Hgb 14.3, Hct 41.2, Plt Count 269 05/11/18 17:25: Sodium 138, Potassium 3.5, BUN 18, Creatinine 1.00, Glucose 73 L , Magnesium 2.1, Total Bilirubin 0.4, AST 21, ALT 29, Alkaline Phosphatase 68 Assessment And Plan - Plan - Problems (Diagnosis) (1) Chest pain, rule out acute myocardial infarction Current Visit: Yes Status: Acute (2) Persistent cough Current Visit: Yes Status: Acute (3) Acute bronchitis Current Visit: Yes Status: Acute - Plan 1. Cardiology consultation, Recommendations appreciated. 3. Echocardiogram and treadmill stress test ordered, pending. 4. Anti-platelet therapy, anti coagulation, beta-arben, statin, and O2 as needed 5. IV morphine for pain 6. Nitro p.r.n. Disposition: Pending cardiac testing, Discharge if testing negative. Discharge Plan: Home Plan to discharge in: 24 Hours Physician Review: Patient Assessed, Agree with Above Assessment and Plan Time Spent Managing PTS Care (In Minutes): 35
[2018-05-12 16:36] VITALS: O2SAT 100
[2018-05-12 17:31] VITALS: BP 120/67
--- NOTE | 2018-05-12 18:07 | EKG ---
Test Date: 2018-05-12 Test Time: 07:11:43 Director Of Nuclear Medicine: TRACEY MEASUREMENT RESULTS: Intervals: Rate: 65 AK: 150 QRSD: 94 QT: 400 QTc: 416 [place]: P: 45 AK: 150 QRS: 85 T: 21 INTERPRETIVE STATEMENTS: Normal sinus rhythm Normal ECG Compared to ECG 05/11/2018 17:13:40 Right-axis deviation no longer present Electronically Signed On 05-12-18 18:05:24 TUMBLER TENDER by George Parks
--- NOTE | 2018-05-12 18:45 | P.SSS ---
Patient History Date of Service: 05/12/18 Reason for admission: Chest pain rule out acute coronary syndrome History of Present Illness: Patient 38 old gentleman came into the hospital with chest discomfort. Patient was at work he said it was really when the. He said he was a lot of dust in the area. It was blood all around the many was coughing quite a bit. Has history of bronchitis. He believes is bronchitis was flared. He had a lot of congestion as well. He started having chest pain. He was in the sternal region and radiate to his left arm. He denied any shortness of breath but was a little nauseated. No diaphoresis. Chest pain was not improving so he came to the ER. He is admitted to the hospital for further workup. Allergies No Known Allergies Allergy (Unverified 05/11/18 23:46) Home Medications: Guanfacine HCl [Guanfacine HCl ER] 1 mg PO BEDTIME 05/11/18 - Past Medical/Surgical History Has patient received pneumonia vaccine in the past: No Diabetic: No -: ADD -: Bronchitis -: left inguinal sx -: tonsillectomy/adenoids - Family History Father -: Hypertension, Diabetes Mother -: Heart disease, Hypertension Notes: hypoglycemia - Social History Smoking Status: Never smoker Alcohol use: No CD- Drugs: No Caffeine use: Yes Place of Residence: Home Physical Examination - Vital Signs Temperature: 98.6 F Blood Pressure: 120/67 Pulse: 78 Respirations: 16 Pulse Ox (%): 99 - Studies Laboratory Data (last 24 hrs) 05/11/18 17:25: WBC 4.1 L, Hgb 14.3, Hct 41.2, Plt Count 269 Treatment Summary: Patient was admitted for chest pain, Cardiology was consulted. ECHO and stress test were performed and were negative. At the time of discharge,. patient was symptom free and he remained hemodynamically stable through out the stay. No changes made to medications at the time of discharge. - Disposition Condition: GOOD Patient Discharge Instructions: Please follow up with the primary care physician in 1 week. Please return to the ER for worsening symptoms. Diet: AHA Activity: Ad kurtis Physician Review: Patient Assessed, Agree with Above Assessment and Plan Time Spent Managing Pts Care (In Minutes): 45
--- NOTE | 2018-05-15 08:41 | ECHO ---
HEIGHT: 5 ft 10 in WEIGHT: 243 lb 8 oz DATE OF STUDY: 05/12/[address]: Glenn Jane MD 2-DIMENSIONAL: YES M.MODE: YES DOPPLER: YES COLOR FLOW: YES TDS: PORTABLE: DEFINITY: BUBBLE STUDY: DIAGNOSIS: CHEST PAIN CARDIAC HISTORY: CATHERIZATION: NO SURGERY: NO PROSTHETIC VALVE: NO PACEMAKER: NO MEASUREMENTS (cm) DIASTOLIC (NORMALS) SYSTOLIC (NORMALS) IVSd 1.0 (0.6-1.2) LA Diam 3.5 (1.9-4.0) LVEF 69% LVIDd 5.0 (3.5-5.7) LVIDs 3.1 (2.0-3.5) %FS 39% LVPWd 0.9 (0.6-1.2) Ao Diam 2.9 (2.0-3.7) 2 DIMENSIONAL ASSESSMENT: RIGHT ATRIUM: NORMAL LEFT ATRIUM: NORMAL RIGHT VENTRICLE: NORMAL LEFT VENTRICLE: NORMAL TRICUSPID VALVE: NORMAL MITRAL VALVE: NORMAL PULMONIC VALVE: NORMAL AORTIC VALVE: NORMAL PERICARDIAL EFFUSION: NONE AORTIC ROOT: NORMAL LEFT VENTRICULAR WALL MOTION: NORMAL DOPPLER/COLOR FLOW: NORMAL COMMENTS: NORMAL 2-DIMENSIONAL ECHOCARDOGRAM WITH DOPPLER. NO WALL MOTION ABNORMALITY. NO EFFUSION. TECHNOLOGIST: ESTELITA SÁNCHEZ
--- NOTE | 2018-05-15 08:51 | TREADMILL ---
70% H.R.: 129 85% H.R.: 156 90% H.R.: 166 100% H.R.: 184 DX: CHEST PAIN Date of Study: 05/12/2018 Ht: 5 10 Wt: 243 lb 8 oz Consulting Physician: GI MEDICATIONS: TYLENOL, XANAX, LOVENOX, ASPIRIN, LOPRESSOR HISTORY: 38 YEAR OLD MALE HERE FOR CHEST PAIN. HISTORY OF ATTENTION DEFICIT DISORDER AND ATTENTION DIFICIT HYPERACTIVITY DISORDER. PHYSICIAL EXAMINATION: RESTING B.P.: 119/77 RESTING H.R.: 79 RESTING EKG: NORMAL SINUS RHYTHM, RIGHT AXIS DEVIATION PROTOCOL: JUANY ROUTINE EXERCISE TIME: 08:16 MAXIMUM HEART RATE: 160 % OF PREDICTED B.P. AT PEAK STRESS: 147/86 135/84 H.R. AT 1 MINUTE POST EXERCISE: 133 IMPRESSION: ROUTINE STRESS TEST PERFORMED. STOPPED FOR TARGET HEART RATE. NO ARRHYTHMIAS NOTED. DENIES ANY CHEST PAIN. SEE REPORT. NEGATIVE EXERCISE TOLERANCE TEST.
== END 2018-05-12 18:31 | disposition home or self-care (01) ==
LOC: ER 17:08 → ERHOLD 19:48 → 2ND 22:41
PROVIDERS: ADMIT Hospitalist; ATTEND Hospitalist
DX: J20.9 Acute bronchitis, unspecified (principal); F98.8 Other specified behavioral and emotional disorders with onset usually occurring in childhood and adolescence
CPT/HCPCS: 36415; 71045; 80048; 80061; 80076; 83735; 83880; 84484; 85025; 85610; 93005; 93017; 93306; 99285; G0378; J1650